=== PATIENT | male | born 1980 | race Caucasian/White ===

== ENCOUNTER 2016-07-14 22:08 | Emergency (ER) | payer SELFPAY ==
[~2016-07-14] VITALS: Ht 165.1 cm; Wt 88.5 kg
[2016-07-14 22:12] VITALS: BP 120/73
--- NOTE | 2016-07-14 22:34 | NUR ---
PATIENT LEFT WITHOUT BEING SEEN BY DR. MUNOZ. NO FURTHER CARE PROVIDED FOR PATIENT.
== END 2016-07-14 22:34 | disposition left against medical advice (07) ==
LOC: MED 22:08
DX: H92.02 Otalgia, left ear (principal); Z53.21 Procedure and treatment not carried out due to patient leaving prior to being seen by health care provider